=== PATIENT | male | born 1980 | race Caucasian/White ===

== ENCOUNTER 2018-08-17 06:40 | Day surgery (SDC) | payer OTHER ==
[2018-08-15 11:33] VITALS: BMI 30.5
[2018-08-17] MEDS ORDERED: MIDAZOLAM HCL 2 MG/2 ML SINGLE DOSE VIAL ONE (07:02)
[2018-08-17] MEDS ORDERED: BUPIVACAINE LIPOSOME/PF (EXPAREL) 266 MG/20 ML VIAL ONE (07:02)
[2018-08-17] MEDS ORDERED: LIDOCAINE HCL/PF 2% SDV 5ML VIAL ONE (07:31)
[2018-08-17] MEDS ORDERED: ONDANSETRON 4 MG/2 ML VIAL ONE (07:31)
[2018-08-17] MEDS ORDERED: SODIUM CHLORIDE 0.9% P/F 10 ML VIAL IJ ONE (07:31)
[2018-08-17] MEDS ORDERED: PROPOFOL 20 ML ONE ×3 (07:31→10:22)
[2018-08-17] MEDS ORDERED: DEXAMETHASONE SOD PHOSPHATE 4 MG/1 ML VIAL ONE (07:31)
[2018-08-17] MEDS ORDERED: ceFAZolin SODIUM 1 GM VIAL ONE (07:31)
[2018-08-17] MEDS ORDERED: DESFLURANE GAS 240 ML BOTTLE IH ONE (07:34)
--- NOTE | 2018-08-17 07:35 | HP ---
History & Physical Update - History History: No Change - Physical Physical: No Change - Assessment Assessment: No Change - Plan Plan: No Change (Initial H&P is located in patient's paper chart. No new complaints or medications.)
[2018-08-17] MEDS ORDERED: VANCOMYCIN 1,000 MG VIAL (RESTRICTED TO ID ONLY) ONE ×2 (07:37→08:26)
[2018-08-17] MEDS ORDERED: BUPIVACAINE HCL/EPINEPHRINE/PF 30 ML VIAL IJ ONE (07:37)
[2018-08-17] MEDS ORDERED: TRANEXAMIC ACID 1000 MG/10 ML VIAL ONE (08:25)
[2018-08-17] MEDS ORDERED: SUCCINYLCHOLINE CHLORIDE 200 MG/10 ML VIAL ONE (09:28)
--- NOTE | 2018-08-17 11:05 | DS ---
Physical Examination Vital Signs: Vital Signs Temperature 98.1 F 08/17/18 10:40 Pulse Rate 78 08/17/18 10:50 Respiratory Rate 16 08/17/18 10:50 Blood Pressure 105/68 08/17/18 10:50 O2 Sat by Pulse Oximetry (%) 98 08/17/18 10:50 Discharge Summary Reason For Visit: RIGHT PATELLA DISLOCATION Condition: Good - Instructions Diet, Activity, Other Instructions: Post Operative Instructions Dr. Branden Daugherty 1. Pain following an knee surgery is variable and can be significant. Some patients will have more pain than others. You have been provided with a prescription for medication that contains a narcotic. You are NOT allowed to drive while on this medication. You should take Tylenol (Acetaminophen) up to 3000 mg per day when taking the pain medication. Feel free to take medications such as Ibuprofen or Naprosyn in addition to the pain medicine if you do not have any problems with the NSAID class of medications. 2. To prevent clots from developing in your lower extremities, take Aspirin 325 mg every 12 hours routinely until seen by Dr. Daugherty at your follow-up visit. 3. You should not remove the bandages until seen in the office. You may shower with the leg in bag for protection. You are not allowed to bathe or go swimming until the sutures are removed. 4. You are NOT allowed to put weight on the leg or bend your knee. 5. Getting the knee straight is your most important goal during the first 72 hours following knee surgery. Try not to lie down with a pillow under your knee. Instead the pillow should be under your ankle, thus allowing you to push your knee straight down into the bed. This is a very important milestone to achieve before your first post-surgery visit with me. 6. Swelling around the knee is normal following knee surgery. 7. The area around the knee and along the front of your ramírez will also become swollen and black and blue. 8. Apply ice to the knee for 15 min every hour or so. You may continue this for as many days as you like. 9. Please call the office to schedule a visit to have your sutures removed. 10. If for any reason you believe you may have an infection or are concerned, please feel free to call me. I can be reached through our office number 24 hours a day. 11. Please call our office with any questions; we will review the surgical findings during your post operative visit. Disposition: HOME - Home Medications Comprehensive Discharge Medication List: Ambulatory Orders NK [No Known Home Medication] 08/15/18
--- NOTE | 2018-08-17 11:05 | OP ---
Operative Note - Note: Operative Date: 08/17/18 Pre-Operative Diagnosis: Recurrent patella instability right knee Operation: Right leg tibial tubercle osteotomy, MPFL reconstruciton Post-Operative Diagnosis: Same as Pre-op Surgeon: Branden Daugherty Entry Level Installation Technician: Nino Galo Anesthesiologist/SALES EXECUTIVE: Sanya Sierra Anesthesia: General Operative Report Dictated: Yes
[2018-08-17] MEDS ORDERED: ONDANSETRON 4 MG/2 ML VIAL IVPUSH PRN (11:11)
[2018-08-17] MEDS ORDERED: oxyCODONE HCL 5 MG TABLET PO PRN ×2 (11:11)
[2018-08-17] MEDS ORDERED: LACTATED RINGERS SOLUTION 1,000 ML IV SCH (11:15)
[2018-08-17] MEDS ORDERED: oxyCODONE HCL 5 MG TABLET ONE (11:52)
[2018-08-17 13:32] VITALS: TEMP 98
[2018-08-17 13:38] VITALS: BP 104/62; PULSE 76
--- NOTE | 2018-08-17 16:31 | SURG ---
Surgery Drafter Patent Note Drafter Patent: Nino Galo [id number] Date of Service: 08/17/18 Diagnosis: Recurrent patella instability right knee Procedure: Right leg tibial tubercle osteotomy, MPFL reconstruciton I was present for the entirety of the operative procedure. For further detail, please refer to operative report. Visit type - Case Type Case Type: Scheduled - New patient This patient is new to me today: Yes Date on this admission: 08/17/18
== END 2018-08-17 13:20 | disposition home or self-care (01) ==
LOC: FASU 06:40
PROVIDERS: ATTEND Orthopaedic Surgery
PROC: 0SWC0JZ Revision of Synthetic Substitute in Right Knee Joint, Open Approach (ICD-10-PCS; 2018-08-17)
PROC: 0SW Lower Joints, Revision (ICD-10-PCS; 2018-08-17)
PROC: 0QSG04Z Reposition Right Tibia with Internal Fixation Device, Open Approach (ICD-10-PCS; principal; 2018-08-17 08:38)
DX: M22.01 Recurrent dislocation of patella, right knee (principal)
CPT/HCPCS: 73560-TC-RT-FY; 94760

== ENCOUNTER 2019-04-27 17:36 | Emergency (ER) | payer OTHER ==
[2019-04-27 18:28] VITALS: BP 113/78; PULSE 92; TEMP 99.8; BMI 30.5
--- NOTE | 2019-04-27 18:51 | PDOC ---
Documentation entered by Vero Hall SCRIBE, acting as scribe for Kasia Anderson MD. Kasia Anderson MD: This documentation has been prepared by the meganibRafael geronimo Lincy, SCRIBE, under my direction and personally reviewed by me in its entirety. I confirm that the documentation accurately reflects all work, treatment, procedures, and medical decision making performed by me. History of Present Illness - General Chief Complaint: Injury Stated Complaint: FELL Time Seen by Provider: 04/27/19 18:00 History Source: Patient Exam Limitations: No Limitations - History of Present Illness Initial Comments: 04/27/19 18:22 The patient is a 39-year-old male with no significant past medical history presents to the emergency department with L. rib and hip pain s/p a fall. The patient reports he suffered a fall last night, but is unable to recall the details of the event secondary to intoxication. The patient reports he woke up today with severe left-sided rib pain, that is aggravated with breathing and left hip pain. The patient reports taking an ASA at 11:00 am for the pain, without relief. Denies fever or chills. Denies numbness or tingling. Past History - Past Medical History Allergies/Adverse Reactions: Allergies Allergy/AdvReac Type Severity Reaction Status Date / Time bee venom protein (honey bee) Allergy Severe Swelling Verified 04/27/19 17:39 peach Allergy Intermediate MOUTH Verified 04/27/19 17:39 ITCHING Home Medications: Ambulatory Orders Ibuprofen 800 mg PO TID PRN #30 tablet 04/27/19 Anemia: No Asthma: No Cancer: No Cardiac Disorders: No CVA: No COPD: No CHF: No Dementia: No Diabetes: No GI Disorders: Yes (GASTRITIS/H-PYLORI MANY YRS AGO) Disorders: No HTN: No Hypercholesterolemia: No Liver Disease: No Seizures: No Thyroid Disease: No - Surgical History Abdominal Surgery: No Appendectomy: No Cardiac Surgery: No Cholecystectomy: No Lung Surgery: No Neurologic Surgery: No Orthopedic Surgery: No - Suicide/Smoking/Psychosocial Hx Smoking History: Current every day smoker Have you smoked in the past 12 months: Yes Number of Cigarettes Smoked Daily: 4 Hx Alcohol Use: Yes (SOCIALLY) Drug/Substance Use Hx: Yes (OCCASIONALLY) Substance Use Type: Alcohol, Cocaine, Marijuana Hx Substance Use Treatment: No Review of Systems - Review of Systems Able to Perform ROS?: Yes Comments:: 04/27/19 18:22 GENERAL/CONSTITUTIONAL: No fever or chills. No weakness. HEAD, EYES, EARS, NOSE AND THROAT: No change in vision. No ear pain or discharge. No sore throat. CARDIOVASCULAR: No chest pain or shortness of breath. RESPIRATORY: No cough, wheezing, or hemoptysis. GASTROINTESTINAL: No nausea, vomiting, diarrhea or constipation. GENITOURINARY: No dysuria, frequency, or change in urination. MUSCULOSKELETAL: +left rib pain and left hip pain. No other joint or muscle swelling or pain. No neck or back pain. SKIN: No rash NEUROLOGIC: No headache, vertigo, loss of consciousness, or change in strength/ sensation. ENDOCRINE: No increased thirst. No abnormal weight change. HEMATOLOGIC/LYMPHATIC: No anemia, easy bleeding, or history of blood clots. ALLERGIC/IMMUNOLOGIC: No hives or skin allergy. *Physical Exam - Vital Signs Last Vital Signs Temp Pulse Resp BP Pulse Ox 99.8 F H 92 H 18 113/78 99 04/27/19 17:37 04/27/19 17:37 04/27/19 17:37 04/27/19 17:37 04/27/19 17:37 - Physical Exam Comments: 04/27/19 18:26 General: Alert and awake, mildly uncomfortable. Heart: Regular rate and rhythm Chest wall: +diffused left sided chest wall tenderness, no ecchymosis. Lung: Breath sounds equal, clear to auscultation bilaterally Abdomen: Soft, nontender, nondistended. Neurological: Alert and oriented x3. Ambulatory in the ED with a steady gait. Cranial nerves grossly intact. ED Treatment Course - RADIOLOGY Radiology Studies Ordered: Category Date Time Status CHEST PA & LAT [RAD] Stat Radiology 04/27/19 18:12 Taken RIBS-LEFT SIDE [RAD] Stat Radiology 04/27/19 18:12 Taken - Medications Given in the ED: ED Medications Discontinued Medications Generic Name Dose Route Start Last Admin Trade Name Freq PRN Reason Stop Dose Admin Oxycodone/Acetaminophen 2 combo 04/27/19 18:12 04/27/19 18:36 Percocet 5/325 - PO 04/27/19 18:13 2 combo ONCE ONE Administration Medical Decision Making - Medical Decision Making 04/27/19 18:47 Pt presents to the ED complaining of pleuritic chest pain after fall yesterday. Cxr checked to rule out rib fx or ptx and is negative. Will give pain control and discharge home with instructions to return to the ED for worsening symptoms. *DC/Admit/Observation/Transfer Diagnosis at time of Disposition: Contusion, chest wall Qualifiers: Encounter type: initial encounter Laterality: left Qualified Code(s): S20.212A - Contusion of left front wall of thorax, initial encounter - Discharge Dispostion Disposition: HOME Condition at time of disposition: Good Decision to Admit order: No - Prescriptions Prescriptions: Ibuprofen 800 mg PO TID PRN #30 tablet PRN Reason: Pain - Referrals Referrals: Bogdan Guido MD [Primary Care Provider] - - Patient Instructions Printed Discharge Instructions: DI for Rib Contusion Additional Instructions: you came to the ED because you had pain in the chest wall after a fall. We did an xray to look for a collapsed lung or a fracture, and your xray looks normal. You should return to the ED for severe chest pain or shortness of breath, fever, other new or worsening symptoms. Follow up with your primary care doctor. - Post Discharge Activity
== END 2019-04-27 19:05 | disposition home or self-care (01) ==
LOC: FER 17:36
DX: S20.212A Contusion of left front wall of thorax, initial encounter (principal); W18.39XA Other fall on same level, initial encounter; Y93.89 Activity, other specified; Y92.89 Other specified places as the place of occurrence of the external cause; F17.210 Nicotine dependence, cigarettes, uncomplicated
CPT/HCPCS: 71046-TC-FY; 71101-TC-LT-FY; 99282-25

== ENCOUNTER 2020-10-05 10:48 | Emergency (ER) | payer OTHER | END 2020-10-05 11:59 | disposition home or self-care (01) | LOC: JVIRT 10:48 | DX: Z20.822 Contact with and (suspected) exposure to COVID-19 (principal) | CPT/HCPCS: C9803; G2012-GT; U0003 ==